=== PATIENT | male | born 1950 | race Caucasian/White ===

== ENCOUNTER 2024-04-01 15:47 | Emergency (ER) | payer OTHER, SELFPAY ==
[2024-04-01 15:48] VITALS: BP 167/83; PULSE 62; RESP 18; TEMP 36; O2SAT 99; BMI 29.7
--- NOTE | 2024-04-01 16:13 | EX.ED.DYSGE1 ---
HPI History of Present Illness Chief Complaint: Ear Problem Narrative Narrative: Mr. Palmer is a 73-year-old gentleman past medical history of pancreatic carcinoma undergoing chemotherapy, also hard of hearing and wears hearing aids. He relates history that over the last week or so he was being treated for otitis externa in his right ear. He was using Cortisporin drops 4 times a day which seemed to relieve his pain. He denies any fevers or chills, no nausea or vomiting, no other symptoms. He was able to undergo his chemotherapy the other day, and 3 days ago he noticed that when he took out his hearing aids, they were wet. He states he does not have any ear pain. He noticed that before he was only having problems with his right ear, but his left ear now has drainage as well. No exacerbating or alleviating factors. No increased loss of hearing over baseline. [facility] Medical History Pancreatic cancer Hypertension Home Medications ?Medication ?Instructions ?Recorded ?Last Taken ?Type ciprofloxacin HCl 500 mg tablet 500 mg PO BID #20 tabs 04/01/24 Unknown Rx (Cipro) Allergy/AdvReac Type Severity Reaction Status Date / Time No Known Allergies Allergy Verified 04/01/24 15:48 Social History Smoking Status: Former smoker ROS ROS ED ROS Narrative Constitutional: No fever, no chills. HEENT: No sore throat. No neck pain. No loss of vision. No rhinorrhea. Positive drainage from bilateral ears. No pain. No loss of hearing over baseline and his need for hearing aids. Cardiovascular: No chest pain. No palpitations. No pedal edema. Respiratory: No cough, no shortness of breath. Abdominal: No abdominal pain. No nausea. No vomiting. Genitourinary: No dysuria. No hematuria. Musculoskeletal: No myalgias. No arthralgias. Neurologic: No headaches. No dizziness. No lightheadedness. Skin: No rash. No change in color. Psychiatric: No depression. No anxiety. EXAM Physical Exam Narrative Exam Narrative: Afebrile. Vital signs noted. Focused physical examination reveals regular rate and rhythm, lungs clear to auscultation bilaterally, abdomen soft nontender with normal active bowel sounds. Neurological examination nonfocal and nonlateralizing. Nontoxic-appearing. There is no mastoid tenderness or erythema bilaterally. No pain with movement of auricle or tragus bilaterally. Inspection of the bilateral ear canals does reveal discharge within the canal. I do not appreciate TM perforation, but TM is not fully visualized secondary to discharge bilaterally. Remainder the physical is unremarkable. Const Vital Signs: 04/01/24 15:48 Temperature 96.8 F L Temperature Source Temporal Pulse Rate 62 Respiratory Rate 18 Blood Pressure 167/83 H Blood Pressure Mean 111 Pulse Ox 99 Oxygen Delivery Method Room Air MDM MDM MDM Narrative Medical decision making narrative: Concern is for bilateral otitis externa versus perforated otitis media versus malignant otitis externa. As there is no mastoid tenderness or ear pain, he will be placed on ciprofloxacin orally. He was given his first dose here and a prescription written to take twice a day for the next 10 days. He was also referred to otolaryngology. I do not feel he requires laboratory work at this time, I feel he can be discharged to follow-up. Return instructions to the emergency department were reviewed. Disposition is discharged home in stable condition. History & Record Review Discussion w/independent historian: Patient Discharge Plan Triage Chief Complaint: Ear Problem ED Provider: Alan Griggs Dx/Rx/DC Orders Clinical Impression: Ear drainage, Otitis externa Instructions: ED External Ear Infection (Adult) Prescriptions: New ciprofloxacin HCl [Cipro] 500 mg tablet 500 mg PO BID Qty: 20 0RF Primary Care Provider: [facility] Referrals: Gareth Pratt MD [Med Staff - Active Staff] - [facility] [Primary Care Provider] - Activity Restrictions/Additional Instructions: Antibiotics as indicated. Follow-up with otolaryngology. Return with fever, pain, new or worsening symptoms. Print Language: Turkish Disposition Disposition: Home, Self Care
[2024-04-01] MEDS: Ciprofloxacin 500 MG Tablet PO (16:38)
[2024-04-01 16:42] VITALS: BP 143/71; PULSE 56; RESP 17; TEMP 36.6; O2SAT 100
== END 2024-04-01 16:42 | disposition home or self-care (01) ==
PROVIDERS: Emergency Provider Emergency Medicine; Visit Provider Emergency Medicine
DX: H60.501 Unspecified acute noninfective otitis externa, right ear (principal); C25.9 Malignant neoplasm of pancreas, unspecified; Z87.891 Personal history of nicotine dependence
CPT/HCPCS: 87070; 87075; 87077; 87186; 87205; 99282

== ENCOUNTER 2024-10-21 20:45 | Emergency (ER) | payer OTHER, SELFPAY ==
[2024-10-21 20:45] VITALS: BP 169/82; PULSE 71; RESP 16; TEMP 36.1; O2SAT 99; BMI 25.7
--- NOTE | 2024-10-21 21:10 | CT_ITS ---
PROCEDURE: ABDOMEN/PELVIS W IV CONT ONLY REASON FOR EXAM: History of Whipple procedure July, abdominal pain TECHNIQUE: Abdomen and pelvis CT with intravenous contrast. Coronal and sagittal reformatted images IV CONTRAST: 93 cc Isovue 370 COMPARISON: None. FINDINGS: Patchy subpleural ill-defined nodular ground-glass opacities at the visualized right middle lobe and right lower lobe may be inflammatory or infectious with possibility of metastatic process not excluded. Surgical staple line at the visualized left base with adjacent bandlike opacity, correlate with history. Very small left pleural effusion. Three-vessel coronary calcification. Postsurgical changes consistent with history of prior Whipple. Ovoid density at the left oblique ventral abdominal wall for example axial 69 and coronal 51 measuring 4.2 x 2.4 cm may represent abdominal wall intramuscular hematoma, clinically correlate. No definite abscess identified. No bowel dilation or free air. Moderate colonic fecal material without wall thickening. Normal caliber appendix without secondary signs. Aortic iliac atherosclerotic changes without abdominal aortic aneurysm. The liver, adrenal glands, kidneys and spleen appear within limits. Small right cortical renal cyst, incidental. The splenic vein, portal vein and SMV contain contrast as expected. No free fluid. The bladder appears within limits. Prostate radiation seeds noted. Lower lumbar spondylosis/discogenic change. CT/Abdomen/Pelvis W IV Cont ONLY IMPRESSION: Ovoid density at the left oblique ventral abdominal wall for example axial 69 a nd coronal 51 measuring 4.2 x 2.4 cm may represent abdominal wall intramuscular hematoma, clinically correlate. Postsurgical changes consistent with history of prior Whipple. No evidence of bowel obstruction, abscess or free air. No free fluid. Moderate colonic fecal material within the colon. Patchy subpleural ill-defined nodular ground-glass opacities at the visualized right middle lobe and right lower lobe may be inflammatory or infectious with possibility of metastatic process not excluded. Surgical staple line at the visualized left base with adjacent bandlike opacity, correlate with history. Very small left pleural effusion. One or more dose reduction techniques were used (e.g., Automated exposure contr ol, adjustment of the mA and/or kV according to patient size, use of iterative reconstruction technique). Reading Location: [id number]
[2024-10-21] MEDS: 0.9% Normal Saline (1000mL) 1,000 ML 999 ML IV (21:23)
[2024-10-21 21:29] LABS: Absolute Lymphocyte Count 1.05 X10^3/uL (0.83-4.51); Absolute Neutrophil Count 1.9 X10^3/uL (2.0-7.7); Basophil# 0.01 X10^3/uL; Basophil% 0.3 % (0-1); Eosinophil# 0.06 X10^3/uL; Eosinophils% 1.8 % (0-5); Hematocrit 26.4 % (40-54); Hemoglobin 8.3 g/dL (13.0-16.5); Lymphocyte # 1.05 X10^3/ul (0.83-4.51); Lymphocyte % 31.8 % (19-41); Mean Corp Hgb Conc 31.4 g/dL (32-36); Mean Corpuscular Hgb 27.3 pg (27.0-32.0); Mean Corpuscular Volume 86.8 fL (80-94); Mean Platelet Vol. 8.6 fl (6.2-12.0); Monocyte# 0.27 X10^3/uL; Monocyte% 8.2 % (0-10); NRBC Flagged by Analyzer 0 % (0-5); Neutrophil # 1.88 X10^3/uL (2.7-7.7); Platelet Count 291 K/mm3 (150-450); RBC Distribution Width CV 19.7 % (11.6-14.6); RBC Distribution Width SD 61.2 fl (35.1-43.9); Red Blood Count 3.04 M/mm3 (4.6-6.2); White Blood Count 3.3 K/mm3 (4.4-11.0)
--- NOTE | 2024-10-21 21:33 | EDS_ITS ---
HPI History of Present Illness Chief Complaint: Wound Check Narrative Narrative: Patient is a 74-year-old male with past medical history of atrial fibrillation on Eliquis, type 2 diabetes, pancreatic cancer status post Whipple procedure in July who presented to the emergency department with a chief complaint of concern for infection near his surgical site. Patient states that his wound had been healing well until recently he noted that he had a sore spot on his surgical incision and felt like this area was infected therefore he came here for the valuation management. Patient states that for the past few days he noted that it was very bothersome for him to lay on either side. Otherwise patient states that has been feeling well no fevers no vomiting no other complaints. [facility] Medical History Atrial fibrillation and flutter Tachycardia Type 2 diabetes mellitus Pancreatic cancer Hypertension Home Medications ?Medication ?Instructions ?Recorded ?Last Taken ?Type amlodipine 10 mg tablet 10 mg PO QDAY 09/10/24 Unkno wn History apixaban 2.5 mg tablet 2.5 mg PO BID 09/10/24 Unkno wn History empagliflozin 25 mg tablet 12.5 mg PO QAM 09/10/24 Unk nown History hydralazine 25 mg tablet 25 mg PO TID 09/10/24 Unknow n History lisinopril 40 mg tablet 40 mg PO QDAY 09/10/24 Unkno wn History metformin 500 mg tablet 1,000 mg PO BID 09/10/24 Unk nown History pantoprazole 40 mg tablet,delayed 40 mg PO QDAY PRN na usea 09/10/24 Unknown History release Allergy/AdvReac Type Severity Reaction Status Date / Time No Known Allergies Allergy Verified 10/21/24 20:46 Surgical History History of lung surgery History of Whipple procedure Social History Smoking Status: Former smoker ROS ROS ED ROS Narrative Constitutional: Denies fevers, chills, headaches, lightness, dizziness Eyes: Denies change in vision double vision blurry vision Cardiovascular: Denies chest pain or palpitations Respiratory: Denies coughing wheezing shortness of breath Abdomen: Complains of abdominal pain as noted above denies nausea vomit diarrhea : Denies any urinary symptoms Neurological: Denies numbness, wheeze, tingling Musculoskeletal: Denies back pain Skin: Complains of tenderness palpation over his surgical incision is noted above EXAM Physical Exam Narrative Exam Narrative: General: Patient was lying in bed rest comfortably did not appear to be acute distress Head: Atraumatic, normocephalic Eyes: PERRL bilaterally, EOMI bilateral, no conjunctival injection noted Neck: Soft, supple, trachea midline Cardiovascular: Regular rate and rhythm no murmurs gallops rubs are noted Respiratory: Clear to auscultation bilaterally no rales rhonchi or wheezes noted Abdomen: Soft, nondistended, nontender to palpation, bowel sounds present x 4 Extremities: +5/5 strength noted in the bilateral upper and lower extremities, radial pulses +2/4 in the bilateral extremities, no pedal edema on exam Neurological: Patient is following commands knew that he was at [facility] year is 2024 Skin: Surgical incision is healing well however there is small area of scab in nature with mild surrounding erythema noted no purulent discharge noted Const Vital Signs: 10/21/24 20:45 Temperature 97 F L Temperature Source Temporal Pulse Rate 71 Respiratory Rate 16 Blood Pressure 169/82 H Blood Pressure Mean 111 Pulse Ox 99 Oxygen Delivery Method Room Air MDM MDM MDM Narrative Medical decision making narrative: Patient is a 74-year-old male who presented to the emergency department with concern for a wound infection from his Whipple procedure back in July. On the differential diagnose includes but not limited to cellulitis, intra- abdominal processes. Once workup is obtained reviewed he will be reevaluated. Patient CBC reviewed showed no evidence leukocytosis white blood count was 3.3, hemoglobin was 8.3, plate count normal at 291. Patient sodium normal 138, potassium normal 3.6, creatinine was noted to be 0.60. Patient AST and ALT were 16 and 18 respectively total bilirubin normal at 0.17. Patient's lipase was noted to be 7. Patient CT abdomen pelvis with IV contrast was reviewed showed a ovoid density at the left oblique ventral abdominal wall which may represent abdominal wall intramuscular hematoma postsurgical changes consistent with history of prior Whipple no evidence of bowel obstruction abscess or free air no free fluid noted. Moderate colonic fecal material within the colon. Patient has patchy subpleural ill-defined nodular Glatt groundglass opacities visualized right middle lobe and right lower lobe may be inflammatory infectious with po ssibility of metastatic process not excluded. There is surgical staple line at the visualized lung base with adjacent bandlike opacity correlate with history. Very small left pleural effusion. I did discuss these results with the patient and gave a hard copy of the CT result to the patient advised him to follow-up with his primary care physician and likely will need a field associate which I will refer him to 1 if he cannot be seen by someone else that his family physician referred him to. Advised him he will likely need a CT of his chest in the outpatient setting to further evaluate these findings given his history of pancreatic cancer. He is advised to return with worsening symptoms and concerns. We will place him on Keflex for concern for early cellulitis of his surgical incision in the small area. He is advised to keep an eye on this while on antibiotics he was given his first dose here in the emergency department. Patient is agreeable this plan he would like to go home at this point time. All question concerns answered he is discharged home in stable condition. Lab Data Labs: Laboratory Results - last 24 hr 10/21/24 21:23 WBC 3.3 L RBC 3.04 L Hgb 8.3 L Hct 26.4 L MCV 86.8 MCH 27.3 MCHC 31.4 L RDW Std Deviation 61.2 H RDW Coeff of Priscilla 19.7 H Plt Count 291 MPV 8.6 Immature Gran % (Auto) 0.900 Neut % (Auto) 57.0 Lymph % (Auto) 31.8 [place] % (Auto) 8.2 Eos % (Auto) 1.8 Baso % (Auto) 0.3 Absolute Neuts (auto) 1.9 L Absolute Lymphs (auto) 1.05 Nucleated RBC % 0 Sodium 138 Potassium 3.6 Chloride Direct 107 Carbon Dioxide 21.0 L Anion Gap 10 BUN 13 Creatinine 0.60 L Estim Creat Clear Calc 79.78 Est GFR (MDRD) Non-Af 101 BUN/Creatinine Ratio 21.8 H Glucose 100 H Calcium 9.0 Total Bilirubin 0.17 AST 16 ALT 18 Alkaline Phosphatase 63 Total Protein 6.4 Albumin 3.5 Globulin 2.9 Albumin/Globulin Ratio 1.2 Lipase 7 L Radiography Diagnostic Testing: Clinical Impression(s) from Imaging Studies Abdomen/Pelvis CT 10/21/24 21:10 IMPRESSION: Ovoid density at the left oblique ventral abdominal wall for example axial 69 and coronal 51 measuring 4.2 x 2.4 cm may represent abdominal wall intramuscular hematoma, clinically correlate. Postsurgical changes consistent with history of prior Whipple. No evidence of bowel obstruction, abscess or free air. No free fluid. Moderate colonic fecal material within the colon. Patchy subpleural ill-defined nodular ground-glass opacities at the visualized right middle lobe and right lower lobe may be inflammatory or infectious with possibility of metastatic process not excluded. Surgical staple line at the visualized left base with adjacent bandlike opacity, correlate with history. Very small left pleural effusion. One or more dose reduction techniques were used (e.g., Automated exposure control, adjustment of the mA and/or kV according to patient size, use of iterative reconstruction technique). Reading Location: [id number] Discharge Plan Triage Chief Complaint: Wound Check ED Provider: Guanakito Gutierrez Dx/Rx/DC Orders Clinical Impression: Cellulitis, abdominal wall, History of pancreatic cancer, H/O Whipple procedure, Lung nodule Prescriptions: No Action amlodipine 10 mg tablet 10 mg PO QDAY apixaban 2.5 mg tablet 2.5 mg PO BID empagliflozin 25 mg tablet 12.5 mg PO QAM hydralazine 25 mg tablet 25 mg PO TID lisinopril 40 mg tablet 40 mg PO QDAY metformin 500 mg tablet 1,000 mg PO BID pantoprazole 40 mg tablet,delayed release (DR/EC) 40 mg PO QDAY PRN (Reason: nausea) Rx Instructions: on chemo days [facility] [facility] [Primary Care Provider] - Activity Restrictions/Additional Instructions: Follow-up with your primary care physician outpatient setting. You need to take the CT result that was provided to you here in the emergency department to their office for them to review and potentially obtaining a chest CT with the appropriate referral. We will place you on antibiotics for your first dose was given here to take the prescription that was sent to your pharmacy as prescribed. While on this antibiotic if the small area on your abdomen is worsening with more redness surrounding the site you should have the return to the emergency department. Return with any other concerns. Print Language: Icelandic Disposition Disposition: Home, Self Care
[2024-10-21 22:26] LABS: ALB/GLOB Ratio 1.2 RATIO (0.9-2.4); AST(SGOT) 16 U/L (<=37); Alanine Aminotransfer ALT/SGPT 18 U/L (<=46); Albumin, Serum 3.5 g/dL (3.4-4.8); Alkaline Phosphatase 63 U/L (40-129); Anion Gap 10 (5-15); BUN 13 mg/dL (4-19); BUN/Creat Ratio 21.8 RATIO (10-20); Chloride 107 mmol/L (96-108); EST Glomerular Filtration Rate 101 (>60); Estimated Creatinine Clearance 79.78 ml/min; Globulin 2.9 g/dL (2.2-4.2); Glucose 100 mg/dL (70-99); Lipase 7 U/L (13-75); Potassium 3.6 mmol/L (3.3-5.1); Protein, Total 6.4 g/dL (5.9-8.4); Sodium Level 138 mmol/L (133-145); Total Bilirubin 0.17 mg/dL (0.00-1.30)
[2024-10-22] MEDS: Cephalexin 250 MG Capsule 500 MG PO (00:06)
== END 2024-10-22 00:09 | disposition home or self-care (01) ==
PROVIDERS: Emergency Provider Emergency Medicine; Visit Provider Emergency Medicine
DX: L03.311 Cellulitis of abdominal wall (principal); I48.91 Unspecified atrial fibrillation; E11.9 Type 2 diabetes mellitus without complications; I10 Essential (primary) hypertension; Z87.891 Personal history of nicotine dependence; Z79.899 Other long term (current) drug therapy; Z79.84 Long term (current) use of oral hypoglycemic drugs; Z79.01 Long term (current) use of anticoagulants
CPT/HCPCS: 74177; 80053; 83690; 85025; 96360; 96361; 99282; A4216